=== PATIENT | male | born 1975 | race Caucasian/White ===

== ENCOUNTER 2016-10-27 19:25 | Emergency (ER) | payer SELFPAY ==
--- NOTE | 2016-10-27 21:18 | DIAGNOSTIC IMAGING REPORT ---
PROCEDURE: XR FOREARM - LEFT INDICATION: TRAUMA/INJURY TECHNIQUE: AP and lateral views. COMPARISON: None. FINDINGS: Overlying external densities obscures some of the detail (splint). There is a comminuted intra-articular fracture of the left distal radius with two thirds bone width of posterior displacement, moderate dorsal impaction and ventral apical angulation. There is a mildly displaced transverse fracture of the left ulnar styloid. The proximal radius and ulna are normal. IMPRESSION: 1. Comminuted, displaced, and angulated intra-articular fracture of the left distal radius. 2. Displaced fracture of the left ulnar styloid.
--- NOTE | 2016-10-28 00:14 | DIAGNOSTIC IMAGING REPORT ---
PROCEDURE: XR WRIST 1 OR 2 VIEWS - LEFT INDICATION: POST REDUCTION TECHNIQUE: AP and lateral views. COMPARISON: Compare radiographs of the left forearm earlier today. FINDINGS: Cast obscures some of the detail. Interval reduction of left distal radius fracture with mild residual impaction. Mildly displaced ulnar styloid fracture. IMPRESSION: 1. Interval reduction of left distal radius fracture (mild residual impaction). 2. No change in left ulnar styloid fracture.
--- NOTE | 2016-10-28 00:21 | ED CLINICAL REPORT ---
Clinical Report - Physicians/Mid Levels [facility] [address] [place] [address] 10/27/2016 19:25 Patient: RAVEN LOCKETT Time Seen: 22:40 Oct 27 2016. Arrived- By private vehicle. Historian- patient, family and spouse. HISTORY OF PRESENT ILLNESS Chief Complaint: Injury to the right hand and right wrist. The injury happened just prior to arrival. Occurred at home. The patient sustained a direct blow. Patient is experiencing mild pain. Patient denies injury to the head or neck. ( Patient fell from a counter onto a moving garbage, on an outstretched left hand. Patient is right-hand dominant. No prior injuries to the left hand. Was evaluated by medics, and came to the emergency department POV with family.). REVIEW OF SYSTEMS No swelling or tingling. All systems otherwise negative, except as recorded above. PAST HISTORY The patient's dominant hand is the right. He has not had a prior injury to the same area. Additional Surgeries: no known surgeries. Allergies: No Known Drug Allergy. ADDITIONAL NOTES The nursing notes have been reviewed. PHYSICAL EXAM Vital Signs: 10/27/2016 20:13 BP: 130/85. HR: 81. RR: 28. O2 saturation: 99%. Appearance: Alert. Head: Head atraumatic. ENT: Ears normal. CVS: Normal heart rate and rhythm. Heart sounds normal. Respiratory: No respiratory distress. Breath sounds normal. Skin: Skin warm. Skin intact. Extremities: Left distal radius: tenderness, swelling and moderate deformity consistent with a fracture of the distal radius. Limited thumb movement secondary to pain (diminished flexion). Limited ROM at the wrist secondary to pain (diminished flexion). Neurovascular intact distally. No ecchymosis or foreign body. No hand injury. Neuro, Vascular and Tendons: Vascular status intact. Motor intact. PROGRESS AND PROCEDURES Procedural Sedation: Time-out completed immediately before the procedure. Last po intake: (8 hours ago). ASA classification: 2 - patient with mild systemic disease (seizure history). History / physical exam. See physical exam recorded above. Mallampati Classification: Class 2 - tonsillar pillars and uvula hidden by the base of the tongue. Normal airway anatomy. Preparation: consent was obtained and the risks of the procedure, benefits and alternatives were explained to patient. IV established. O2 administered. Placed on pulse oximeter and monitor worker. Suction was made available. Medications: Propofol IV administered. Patient status during sedation: was attended constantly and was cooperative and tranquil with sluggish response to stimulation. Vitals were stable. Oxygen saturation levels were normal. The airway was maintained. The recovery was uneventful. Complications: None. Post-procedure: Recovery was uneventful. Returned to baseline. Sedation only performed by me; intra-service time 16-37 minutes. ( sedation only performed by - TEJAS). (Electronically signed by Artis Lee MD 10/27/2016 23:07) Time Seen: 22:40 Oct 27 2016. Arrived- By private vehicle. Historian- patient, family and spouse. HISTORY OF PRESENT ILLNESS Chief Complaint: Injury to the right hand and right wrist. The injury happened just prior to arrival. The patient sustained a direct blow. Occurred at home. Patient is experiencing mild pain. Patient denies injury to the head or neck. ( Patient fell from a counter onto a moving garbage, on an outstretched left hand. Patient is right-hand dominant. No prior injuries to the left hand. Was evaluated by medics, and came to the emergency department POV with family. There was no injury to his head. since incident he has had significant amount of pain, feeling like he is going topass out.). REVIEW OF SYSTEMS No swelling or tingling. All systems otherwise negative, except as recorded above. PAST HISTORY The patient's dominant hand is the right. He has not had a prior injury to the same area. SOCIAL HISTORY Current every day smoker. No alcohol use or drug use. ADDITIONAL NOTES The nursing notes have been reviewed. PHYSICAL EXAM Vital Signs: 10/27/2016 20:13 BP: 130/85. HR: 81. RR: 28. O2 saturation: 99%. Appearance: Alert. Head: Head atraumatic. ENT: Ears normal. CVS: Normal heart rate and rhythm. Heart sounds normal. Respiratory: No respiratory distress. Breath sounds normal. Skin: Skin warm. Skin intact. Extremities: Left distal ulna: mild tenderness. Limited ROM at the wrist secondary to pain (diminished flexion and extension). Neurovascular intact distally. Left distal radius: tenderness, swelling and moderate deformity consistent with a fracture of the distal radius. Limited thumb movement secondary to pain (diminished flexion). Limited ROM at the wrist secondary to pain (diminished flexion). Neurovascular intact distally. No ecchymosis or foreign body. (no laceration/ abrasion/ bony protrusion, good sensation of thumb). No hand injury. Neuro, Vascular and Tendons: Vascular status intact. Capillary refill not prolonged. Motor intact. No functional tendon deficit. PROGRESS AND PROCEDURES Course of Care: Case discussed with orthopedics, Dr. Alvarado, who will see the patient in the emergency department. He attempted a hematoma block on the patient, however pain was still present, and this with Dr. Lee, conscious sedation was completed, please see their notes for this procedure. Patient was then placed a long-arm cast, by Dr. Alvarado and [facility]. Patient is very stable now alert, ambulatory. No other complaints. Vital signs as above. Patient to follow up outpatient, will likely need surgery. 10/27/2016 23:55 BP: 148/95. HR: 85. RR: 18. O2 saturation: 100%. 10/27/2016 23:30 BP: 162/94. HR: 85. RR: 18. O2 saturation: 100%. 10/27/2016 23:25 BP: 154/99. HR: 81. RR: 17. O2 saturation: 100%. 10/27/2016 23:20 BP: 150/95. HR: 83. RR: 18. O2 saturation: 100%. Patient is stable. Patient/family counseled. Disposition: Discharged. Condition: good. CLINICAL IMPRESSION Closed displaced and angulated comminuted, intraarticular and Colle's fracture of the distal left radius Fall from height. INSTRUCTIONS Apply ice. Elevate affected areas above chest level. Limit use of your hand. (DO NOT REMOVE THE CAST Follow p in 6-7 days with ORTHO). Prescription Medications: Zofran (orally disintegrating tablets) 4 mg: take 1 orally every 6 hours for 5 days as needed for nausea. No refill. Substitution is permissible. Ibuprofen 800 mg tablets: take 1 tablet orally every 8 hours for 5 days, as needed for pain. Dispense twenty (20). No refill. Percocet 5 mg/325 mg: take 1 tablet orally every 4 hours as needed for pain. Dispense thirty (30). No refill. Substitution is permissible. Follow-up: Follow up with your doctor in three days. Understanding of the discharge instructions verbalized by patient. Follow-up with: [facility], , [address], , [place], [id number] Follow up in five days. Call for the next available appointment. (Electronically signed by Nayla Quezada P.A.-C 10/28/2016 1:03) Addenda viet RAVEN LOCKETT VisitID: [id number] Date: 10/27/2016 10/28/2016 1:04 EKG: vent rate 70 prt inerval 152 qrs duration [address] changes or elevation Normal sinus rhythm with sinus arrhythmia (Electronically signed by Nayla Quezada P.A.-C - 10/28/2016 1:04)
--- NOTE | 2016-10-28 00:21 | ED CLINICAL REPORT ---
Clinical Report - Physicians/Mid Levels [facility] [address] [place] [address] 10/27/2016 19:25 Patient: RAVEN LOCKETT Time Seen: 22:40 Oct 27 2016. Arrived- By private vehicle. Historian- patient, family and spouse. HISTORY OF PRESENT ILLNESS Chief Complaint: Injury to the right hand and right wrist. The injury happened just prior to arrival. Occurred at home. The patient sustained a direct blow. Patient is experiencing mild pain. Patient denies injury to the head or neck. ( Patient fell from a counter onto a moving garbage, on an outstretched left hand. Patient is right-hand dominant. No prior injuries to the left hand. Was evaluated by medics, and came to the emergency department POV with family.). REVIEW OF SYSTEMS No swelling or tingling. All systems otherwise negative, except as recorded above. PAST HISTORY The patient's dominant hand is the right. He has not had a prior injury to the same area. Additional Surgeries: no known surgeries. Allergies: No Known Drug Allergy. ADDITIONAL NOTES The nursing notes have been reviewed. PHYSICAL EXAM Vital Signs: 10/27/2016 20:13 BP: 130/85. HR: 81. RR: 28. O2 saturation: 99%. Appearance: Alert. Head: Head atraumatic. ENT: Ears normal. CVS: Normal heart rate and rhythm. Heart sounds normal. Respiratory: No respiratory distress. Breath sounds normal. Skin: Skin warm. Skin intact. Extremities: Left distal radius: tenderness, swelling and moderate deformity consistent with a fracture of the distal radius. Limited thumb movement secondary to pain (diminished flexion). Limited ROM at the wrist secondary to pain (diminished flexion). Neurovascular intact distally. No ecchymosis or foreign body. No hand injury. Neuro, Vascular and Tendons: Vascular status intact. Motor intact. PROGRESS AND PROCEDURES Procedural Sedation: Time-out completed immediately before the procedure. Last po intake: (8 hours ago). ASA classification: 2 - patient with mild systemic disease (seizure history). History / physical exam. See physical exam recorded above. Mallampati Classification: Class 2 - tonsillar pillars and uvula hidden by the base of the tongue. Normal airway anatomy. Preparation: consent was obtained and the risks of the procedure, benefits and alternatives were explained to patient. IV established. O2 administered. Placed on pulse oximeter and surveillance system monitor. Suction was made available. Medications: Propofol IV administered. Patient status during sedation: was attended constantly and was cooperative and tranquil with sluggish response to stimulation. Vitals were stable. Oxygen saturation levels were normal. The airway was maintained. The recovery was uneventful. Complications: None. Post-procedure: Recovery was uneventful. Returned to baseline. Sedation only performed by me; intra-service time 16-37 minutes. ( sedation only performed by - TEJAS). (Electronically signed by Artis Lee MD 10/27/2016 23:07) Time Seen: 22:40 Oct 27 2016. Arrived- By private vehicle. Historian- patient, family and spouse. HISTORY OF PRESENT ILLNESS Chief Complaint: Injury to the right hand and right wrist. The injury happened just prior to arrival. The patient sustained a direct blow. Occurred at home. Patient is experiencing mild pain. Patient denies injury to the head or neck. ( Patient fell from a counter onto a moving garbage, on an outstretched left hand. Patient is right-hand dominant. No prior injuries to the left hand. Was evaluated by medics, and came to the emergency department POV with family. There was no injury to his head. since incident he has had significant amount of pain, feeling like he is going topass out.). REVIEW OF SYSTEMS No swelling or tingling. All systems otherwise negative, except as recorded above. PAST HISTORY The patient's dominant hand is the right. He has not had a prior injury to the same area. SOCIAL HISTORY Current every day smoker. No alcohol use or drug use. ADDITIONAL NOTES The nursing notes have been reviewed. PHYSICAL EXAM Vital Signs: 10/27/2016 20:13 BP: 130/85. HR: 81. RR: 28. O2 saturation: 99%. Appearance: Alert. Head: Head atraumatic. ENT: Ears normal. CVS: Normal heart rate and rhythm. Heart sounds normal. Respiratory: No respiratory distress. Breath sounds normal. Skin: Skin warm. Skin intact. Extremities: Left distal ulna: mild tenderness. Limited ROM at the wrist secondary to pain (diminished flexion and extension). Neurovascular intact distally. Left distal radius: tenderness, swelling and moderate deformity consistent with a fracture of the distal radius. Limited thumb movement secondary to pain (diminished flexion). Limited ROM at the wrist secondary to pain (diminished flexion). Neurovascular intact distally. No ecchymosis or foreign body. (no laceration/ abrasion/ bony protrusion, good sensation of thumb). No hand injury. Neuro, Vascular and Tendons: Vascular status intact. Capillary refill not prolonged. Motor intact. No functional tendon deficit. PROGRESS AND PROCEDURES Course of Care: Case discussed with orthopedics, Dr. Alvarado, who will see the patient in the emergency department. He attempted a hematoma block on the patient, however pain was still present, and this with Dr. Lee, conscious sedation was completed, please see their notes for this procedure. Patient was then placed a long-arm cast, by Dr. Alvarado and [facility]. Patient is very stable now alert, ambulatory. No other complaints. Vital signs as above. Patient to follow up outpatient, will likely need surgery. 10/27/2016 23:55 BP: 148/95. HR: 85. RR: 18. O2 saturation: 100%. 10/27/2016 23:30 BP: 162/94. HR: 85. RR: 18. O2 saturation: 100%. 10/27/2016 23:25 BP: 154/99. HR: 81. RR: 17. O2 saturation: 100%. 10/27/2016 23:20 BP: 150/95. HR: 83. RR: 18. O2 saturation: 100%. Patient is stable. Patient/family counseled. Disposition: Discharged. Condition: good. CLINICAL IMPRESSION Closed displaced and angulated comminuted, intraarticular and Colle's fracture of the distal left radius Fall from height. INSTRUCTIONS Apply ice. Elevate affected areas above chest level. Limit use of your hand. (DO NOT REMOVE THE CAST Follow p in 6-7 days with ORTHO). Prescription Medications: Zofran (orally disintegrating tablets) 4 mg: take 1 orally every 6 hours for 5 days as needed for nausea. No refill. Substitution is permissible. Ibuprofen 800 mg tablets: take 1 tablet orally every 8 hours for 5 days, as needed for pain. Dispense twenty (20). No refill. Percocet 5 mg/325 mg: take 1 tablet orally every 4 hours as needed for pain. Dispense thirty (30). No refill. Substitution is permissible. Follow-up: Follow up with your doctor in three days. Understanding of the discharge instructions verbalized by patient. Follow-up with: [facility], , [address], , [place], [id number] Follow up in five days. Call for the next available appointment. (Electronically signed by Nayla Quezada P.A.-C 10/28/2016 1:03) Addenda viet RAVEN LOCKETT VisitID: [id number] Date: 10/27/2016 10/28/2016 1:04 EKG: vent rate 70 prt inerval 152 qrs duration [address] changes or elevation Normal sinus rhythm with sinus arrhythmia (Electronically signed by Nayla Quezada P.A.-C - 10/28/2016 1:04)
--- NOTE | 2016-10-28 00:22 | ED ORDER SUMMARY ---
..... Patient: RAVEN LOCKETT OrderSheet [facility] VisitID: [id number] [place] [address] 40y, M Registration Date/Time: 10/27/2016 ORDER SHEET Weight: 95.2 kg (stated) Allergies: No Known Drug Allergy GENERAL ORDERS: Forearm Right Urgent (20:25 10/27/2016 EKoroleva P.A.-C) (Cancelled: Other20:25 EKoroleva P.A.-C) Supervisor [employer]ing [employer] (Continuous) (20:25 10/27/2016 EKoroleva P.A.-C) (Ack 20:28 SRedmond) (20:40 DDavis R.N.) EKG - ER Stat (20:25 10/27/2016 EKoroleva P.A.-C) (Ack 20:28 SRedmond) (20:32 CHagerty ER Leather Seasoner) Forearm Left Urgent (20:26 10/27/2016 EKoroleva P.A.-C) (Ack 20:28 SRedmond) (20:55 MCampbell) Wrist 2V Left Urgent (22:49 10/27/2016 [facility] ER Leather Seasoner verbal order read back to EKoroleva P.A.-C) (Ack 23:02 SRedmond) (23:33 GUnger) MEDICATION ORDERS: Bupivacaine Injection 0.25 % (soln) (place at bedside, with syringes & needles) (21:21 10/27/2016 DDavis R.N. verbal order read back to EKoroleva P.A.-C) (Ack 21:22 DDavis R.N.) (21:23 DDavis R.N.) IV FLUIDS: Dilaudid IV 1 mg (HIGH ALERT MEDICATION, NOW) (20:25 10/27/2016 EKoroleva P.A.-C) (Ack 20:41 DDavis R.N.) (20:56 DDavis R.N.) IV Saline Lock (20:25 10/27/2016 EKoroleva P.A.-C) (20:40 DDavis R.N.) IV NS : initial bolus 1000 mL (1000 mL/hr), then 10 mL/hr for X1 (NOW); Jamie (21:15 10/27/2016 EKoroleva P.A.-C) (21:20 DDavis R.N.) Dilaudid IV 1 mg (HIGH ALERT MEDICATION, NOW) (21:40 10/27/2016 EKoroleva P.A.-C) (Ack 21:45 DDavis R.N.) (21:51 DDavis R.N.) Propofol IV 80mg (HIGH ALERT MEDICATION, NOW, TITRATE) (23:08 10/27/2016 RCollier R.N. verbal order read back to Moshe TARIQ) (23:09 RCollier R.N.) IV NS : initial bolus 500 mL (1000 mL/hr), then none - (NOW) (23:19 10/27/2016 RCollier R.N. verbal order read back to Moshe TARIQ) (23:20 RCollier R.N.) ORDER SHEET NOTES: [Electronically signed by Artis Lee MD (23:07 10/27/2016)] [Electronically signed by Nayla QuezadaASue-C (01:03 10/28/2016)] [Electronically signed by Kwan Burroughs R.N. (06:24 10/28/2016)] [Electronically locked/signed by Kwan Burroughs R.N. (06:24 10/28/2016)]
--- NOTE | 2016-10-28 00:22 | ED ORDER SUMMARY ---
..... Patient: RAVEN LOCKETT OrderSheet [facility] VisitID: [id number] [place] [address] 40y, M Registration Date/Time: 10/27/2016 ORDER SHEET Weight: 95.2 kg (stated) Allergies: No Known Drug Allergy GENERAL ORDERS: Forearm Right Urgent (20:25 10/27/2016 EKoroleva P.A.-C) (Cancelled: Other20:25 EKoroleva P.A.-C) Account Consultant (Continuous) (20:25 10/27/2016 EKoroleva P.A.-C) (Ack 20:28 SRedmond) (20:40 DDavis R.N.) EKG - ER Stat (20:25 10/27/2016 EKoroleva P.A.-C) (Ack 20:28 SRedmond) (20:32 CHagerty ER Staffing And Scheduling Coordinator) Forearm Left Urgent (20:26 10/27/2016 EKoroleva P.A.-C) (Ack 20:28 SRedmond) (20:55 MCampbell) Wrist 2V Left Urgent (22:49 10/27/2016 [facility] ER Staffing And Scheduling Coordinator verbal order read back to EKoroleva P.A.-C) (Ack 23:02 SRedmond) (23:33 GUnger) MEDICATION ORDERS: Bupivacaine Injection 0.25 % (soln) (place at bedside, with syringes & needles) (21:21 10/27/2016 DDavis R.N. verbal order read back to EKoroleva P.A.-C) (Ack 21:22 DDavis R.N.) (21:23 DDavis R.N.) IV FLUIDS: Dilaudid IV 1 mg (HIGH ALERT MEDICATION, NOW) (20:25 10/27/2016 EKoroleva P.A.-C) (Ack 20:41 DDavis R.N.) (20:56 DDavis R.N.) IV Saline Lock (20:25 10/27/2016 EKoroleva P.A.-C) (20:40 DDavis R.N.) IV NS : initial bolus 1000 mL (1000 mL/hr), then 10 mL/hr for X1 (NOW); Jamie (21:15 10/27/2016 EKoroleva P.A.-C) (21:20 DDavis R.N.) Dilaudid IV 1 mg (HIGH ALERT MEDICATION, NOW) (21:40 10/27/2016 EKoroleva P.A.-C) (Ack 21:45 DDavis R.N.) (21:51 DDavis R.N.) Propofol IV 80mg (HIGH ALERT MEDICATION, NOW, TITRATE) (23:08 10/27/2016 RCollier R.N. verbal order read back to Moshe TARIQ) (23:09 RCollier R.N.) IV NS : initial bolus 500 mL (1000 mL/hr), then none - (NOW) (23:19 10/27/2016 RCollier R.N. verbal order read back to Moshe TARIQ) (23:20 RCollier R.N.) ORDER SHEET NOTES: [Electronically signed by Artis Lee MD (23:07 10/27/2016)] [Electronically signed by Nayla QuezadaASue-C (01:03 10/28/2016)] [Electronically signed by Kwan Burroughs R.N. (06:24 10/28/2016)] [Electronically locked/signed by Kwan Burroughs R.N. (06:24 10/28/2016)]
--- NOTE | 2016-10-28 00:22 | ED NURSING NOTES ---
Clinical Report - Nurses [facility] [address] [place] [address] 10/27/2016 19:25 Patient: RAVEN LOCKETT [facility]#: [id number] TRIAGE Triage time 2009. Acuity: LEVEL 3. Chief Complaint: INJURY TO LEFT WRIST. --20:16 Jacqui Cano R.N. 20:13 10/27/16. BP: 130/85. HR: 81. RR: 28. O2 saturation: 99%. Pain level now 04/18. --20:16 Jacqui Cano R.N. Weight: 95.2 kg stated. Height/Length: 72 inches Per Patient. BMI: 28.5. --20:15 Jacqui Cano R.N. Allergies No Known Drug Allergy. --20:23 Jacqui Cano R.N. History Arrived by private vehicle. Historian: patient. Accompanied by family. Primary physician (damaris). This occurred just prior to arrival. Mechanism of injury: fell (fell 3-4 feet off of porch). PAST MEDICAL HX: Tetanus status: unknown. SURGERY HX: No history of previous surgery. SOCIAL HX: Heavy tobacco smoker (cigarette)- less than 1 pack per day. No alcohol use or drug use. --20:16 Jacqui Cano R.N. PROBLEMS: Seizure hx. --20:13 Jacqui Cano R.N. ADDITIONAL SURGERIES: no known surgeries. Interventions ID band on patient. To treatment room. --20:16 Jacqui Cano R.N. PHYSICAL ASSESSMENT GENERAL / NEURO / PSYCH: Oriented X 4. Alert. Appears in pain and anxious. ( Patient NSR on radiation monitor). EXTREMITIES: Capillary refill is less than 2 seconds in the extremities. Left forearm: (pain). SKIN: Skin is warm and dry. --20:40 Kwan Burroughs R.N. 20:39 10/27/16. BP: 169/105 taken while sitting. HR: 76. RR: 16. O2 saturation: 100% on room air. Pain level now: 04/18. --20:40 Kwan Burroughs R.N. GENERAL / NEURO / PSYCH: ( heart sounds and lung sounds WNL). --20:40 Kwan Burroughs R.N. GENERAL / NEURO / PSYCH: Morena Coma Scale: 15- eyes open spontaneously (4); best verbal response- oriented x 4 (5); best motor response- obeys commands (6). --00:50 Kwan Burroughs R.N. 22:45:. GENERAL / NEURO / PSYCH: Oriented X 4. Alert. ( GCS=15, Timeout performed at 2245.). --01:08 Kwan Burroughs R.N. NURSING PROGRESS NOTES 20:22 10/27/16. Care transferred and report given (Levi Rodriguez, EDRN). --20:23 Jacqui Cano R.N. EKG time: (2030). EKG was ordered, performed by a tech and shown to the ED physician. --20:33 Maurizio Baker, ER Health And Wellness Advisor 20:35 10/27/2016 Site #1 started via IV in the right antecubital space with an 20g angiocath; one attempt. Blood drawn: rainbow set. Labeled in the presence of the patient and sent to the lab. Saline lock flushed with 10 mL saline. --20:40 Kwan Burroughs R.N. 20:54 10/27/2016 Dilaudid (HYDROmorphone HCl PF) IVP 1 mg given over 2 minute(s) via site #1. Allergies verified, confirmed 5 rights and sedative warning given to the patient. IV patency established. IV site checked: no pain, redness, or swelling. IV flushed thoroughly pre- and post-medication administration. IVP given by RN. --20:56 Kwan Burroughs R.N. 21:20 10/27/2016 Started bag #1 1000 mL IV Fluids IV NS (Saline); at 1000 mL/hr over 1 hour(s) via site #1. Allergies verified and confirmed 5 rights. IV patency established. IV site checked: no pain, redness, or swelling. IV flushed thoroughly pre- and post-medication administration. Completed per protocol. --21:20 Kwan Burroughs R.N. ( Bupivocaine placed at bedside, per order.). --21:21 Kwan Burroughs R.N. 21:23 10/27/2016 Bupivacaine Injection Injectable 0.25 % given. (to bedside only). --21:23 Kawn Burroughs R.N. 21:49 10/27/2016 Dilaudid (HYDROmorphone HCl PF) IVP 1 mg given over 2 minute(s) via site #1. Allergies verified, confirmed 5 rights and sedative warning given to the patient. IV patency established. IV site checked: no pain, redness, or swelling. IV flushed thoroughly pre- and post-medication administration. IVP given by RN. --21:51 Kwan Burroughs R.N. ( Ortho doc in room). --21:56 Kwan Burroughs R.N. ( Ortho doctor in room with patient, performing procedure. Nurse Levi assisting.). --22:12 Kwan Burroughs R.N. ( Dr. Alvarado applied a cast to the patient's left arm after the closed reduction. Patient is awake and alert, oriented, and conversing with his spouse. He states that the pain is better.). --23:07 Kwan Burroughs R.N. 23:07 10/27/16. BP: 150/84. HR: 85. RR: 15 (unlabored). O2 saturation: 98% on room air. Pain level now: 4/10. --23:08 Kwan Burroughs R.N. 22:51 10/27/2016 PROPOFOL IVP 40 mg given over 2 minute(s) via site #1. Allergies verified and confirmed 5 rights. IV patency established. IV site checked: no pain, redness, or swelling. IV flushed thoroughly pre- and post-medication administration. IVP given by physician. --23:09 Jessica Gilmore R.N. 22:52 10/27/2016 PROPOFOL IVP 20 mg given over 1 minute(s) via site #1. Allergies verified and confirmed 5 rights. IV patency established. IV site checked: no pain, redness, or swelling. IV flushed thoroughly pre- and post-medication administration. IVP given by physician. --23:10 Jessica Gilmore R.N. ( Patient awaiting Xray). --23:10 Kwan Burroughs R.N. 22:50 10/27/2016 Started bag #1 1000 mL IV Fluids IV NS (Saline); bolus of 500 mL over 30 minute(s) via site #1. Allergies verified and confirmed 5 rights. IV patency established. IV site checked: no pain, redness, or swelling. IV flushed thoroughly pre- and post-medication administration. --23:20 Jessica Gilmore R.N. 22:53 10/27/2016 PROPOFOL IVP 20 mg given over 1 minute(s) via site #1. Allergies verified and confirmed 5 rights. IV patency established. IV site checked: no pain, redness, or swelling. IV flushed thoroughly pre- and post-medication administration. IVP given by physician. --23:10 Jessica Gilmore R.N. 23:20 10/27/2016 IV Fluids IV NS Discontinued: bag #1 STOPPED. Total amount infused: 500 mL. IV patency established. IV site checked: no pain, redness, or swelling. IV flushed thoroughly. --23:20 Jessica Gilmore R.N. ( Patient ambulates to bathroom with spouse). --00:11 Kwan Burroughs R.N. ( During the patient's conscious sedation, SOPHIE Lopez administered meds and monitored patient. SOPHIE Sims assisted the Orthopedic doctor with traction and physical manipulation.). --00:52 Kwan Burroughs R.N. 21:56 10/27/2016 IV Fluids IV NS Discontinued: bag #1 completed. Total amount infused: 1000 mL. IV patency established. IV site checked: no pain, redness, or swelling. IV flushed thoroughly. --01:07 Kwan Burroughs R.N. Procedural Sedation Flowsheet Baseline cardiac rhythm: normal sinus rhythm. Diagnosis: fracture, left forearm and wrist. Procedure: reduction of fracture, left forearm and wrist. Procedure performed by consulting orthopedist and assisted by two nurses and ED physician. Allergies: NKDA. Last oral intake by patient was liquid today (at 1530). Patient / family education: explanation of procedure, procedural sedation process, post procedure process, need for ride home and post procedure sedation instructions given to family. Preparation: ID band on patient and consent obtained per patient; order, History and Physical, and meds documented; airway equipment, suction equipment and emergency cart at bedside; pulse oximeter, radiation monitor, NIBP and ETCO2 monitor placed on patient. Patient placed in supine position. Oxygen applied to patient via nasal cannula at 2 liter/min. He was assessed immediately prior to procedure. Time-out completed immediately before the procedure per protocol: verified identity of patient (name, birthdate, visit number and medical record number), procedure, side and site of procedure, position of patient, agreement on the procedure to be done, availability of diagnostic and imaging studies and consent was obtained; verification done by care team (nurse). Procedure start time: 2244 Procedure end time: 2300 Patient tolerated procedure well. --23:19 Jessica Gilmore R.N. 22:45 10/27/16. BP: 174/104. HR: 88. RR: 15. O2 saturation: 96% on nasal cannula at 2 liters/minute. Carpenter-Solis pain scale: 6/10. --23:19 Jessica Gilmore R.N. DISPOSITION / DISCHARGE 01:03 10/28/16. BP: 154/97. HR: 81. RR: 18. O2 saturation: 97% on room air. Pain level now: 10/17. --01:04 Kwan Bruroughs R.N. Departure time: 01:04. Condition at departure: improved and stable. No learning barriers present. Discharge instructions provided and reviewed with the patient. Reviewed warnings. Reviewed medication(s) side effects, precautions, dosing and course information. Prescription(s) given to the patient. Treatments reviewed. Reviewed referrals for followup. Patient and spouse verbalized understanding. Written instructions provided in Andorran. The patient was discharged home and accompanied by spouse and family. He left the Emergency Department ambulatory and via private vehicle. Spouse driving. --01:04 Kwan Burroughs R.N. <<STRICKEN ENTRY-- 01:10/28/2016 Site #1 removed upon discharge. --01:05 Kwan Burroughs R.N. --END STRIKE>> Correction. --01: Kwan Burroughs R.N. 01:10/28/2016 Site #1 removed upon discharge. Manual pressure and bandage applied. --01:05 Kwan Burroughs R.N. Locked/Released at 10/28/2016 6:24 by Kwan Burroughs R.N.
--- NOTE | 2016-10-28 00:40 | CONSULTATION REPORT ---
DATE OF CONSULTATION: 10/27/2016 CHIEF COMPLAINT: 1. Pain and deformity in the left wrist HISTORY OF PRESENT ILLNESS: Thank you very much for requesting an emergency department consultation on this 40-year-old right-handed man who was working at home on his porch about 3 feet off the level grade of the land below, when he fell on concrete and suffered marked pain and deformity of the left wrist. He was brought into our emergency department where x-rays showed a comminuted intra-articular fracture. At the time I saw him , he had numbness and abnormal sensation in the median nerve distribution, especially in the thumb and pointer finger and a little less so on the long finger. MEDICAL/SURGICAL HISTORY: Past medical history: His medical problems are a seizure disorder, controlled by phenobarbital, and hypertension, controlled by medication; he does not know the name. ALLERGIES: 1. HE HAS NO ALLERGIES. PHYSICAL EXAMINATION: GENERAL: Shows a 210 pound man, alert, oriented and in a great deal of pain. He is writhing while lying on the stretcher. VITAL SIGNS: When he was seen was blood pressure of 182/108. His pulse was 90 and regular. EXTREMITIES: Examination of the wrist showed a partial-thickness abrasion over the lateral aspect of the ulna without a laceration and that had already dried by the time I saw him. There were no other wounds on the arm. He had the silver-fork deformity of a Colles fracture. As mentioned in the history, he had numbness on light touch over the thumb, pointer finger and long finger. LAB/IMAGING: Review of the x-rays showed a largely displaced comminuted intra-articular fracture of the distal radius. IMPRESSION: 1. As per x-rays. PLAN: I told him I would perform a reduction, but there was a quite good chance that it would not be the final treatment, which may require surgery on the wrist. I explained a closed reduction. The patient was discharged with oxycodone for pain 7.5/325. I asked that they get an appointment at the orthopedic clinic for followup. PROCEDURE: With sterile technique, I gave the patient a hematoma block with 10 mL of 0.25% bupivacaine into the fracture hematoma of the radius and I injected the ulna styloid with 3 mL. The injections were done with a 25-gauge needle. I waited 15 minutes and the patient had much less pain on pressure over the distal radius fracture, but he could not allow me to hold his pointer finger or thumb and pull on them, so that the reduction would not be possible without supplemental anesthetic. Dr. Benson, the emergency department physician, agreed to provide sedation for the patient and his note will show that. The anesthetic and the closed reduction risks and benefits were explained to the patient and I once again emphasized the shortcomings of closed reduction alone, explaining that he would need regular x-rays taken at about a weekly interval to see if the fracture was coming out of position, in which case secondary surgery may be necessary. Sedation was administered and a closed reduction was performed with an res habilitation assistant pulling opposite for traction and then the manipulation into the final position. A cast was placed and molded at 3 points to maintain the reduction. After the post- reduction x-rays were performed the cast was continued up into a long-arm cast. The patient tolerated the sedation well and awakened in good condition.
--- NOTE | 2016-10-28 06:24 | ED DISCHARGE INSTRUCTIONS ---
Patient: RAVEN LOCKETT General Instructions [facility] VisitID: [id number] [address] [place] [address] 40y, M Registration Date/Time: 10/27/2016 (Electronically signed by Artis Lee MD 10/27/2016 23:07) Closed displaced and angulated comminuted, intraarticular and Colle's fracture of the distal left radius Fall from height. INSTRUCTIONS Apply ice. Elevate affected areas above chest level. Limit use of your hand. (DO NOT REMOVE THE CAST Follow p in 6-7 days with ORTHO). Prescription Medications: Zofran (orally disintegrating tablets) 4 mg: take 1 orally every 6 hours for 5 days as needed for nausea. No refill. Substitution is permissible. Ibuprofen 800 mg tablets: take 1 tablet orally every 8 hours for 5 days, as needed for pain. Dispense twenty (20). No refill. Percocet 5 mg/325 mg: take 1 tablet orally every 4 hours as needed for pain. Dispense thirty (30). No refill. Substitution is permissible. Follow-up: Follow up with your doctor in three days. Understanding of the discharge instructions verbalized by patient. [facility] with: [facility], , [address], [place], [id number] Follow up in five days. Call for the next available appointment. ADDITIONAL INFORMATION Fracture:Wrist (Colles) [Reduction Needed] You have a break (fracture) of the forearm bone (radius) where it attaches to the wrist. This is sometimes called a COLLES FRACTURE. The bone is out of place and must be "set" (reduced) to make it straight again. Once the bone is straightened a splint or cast will be applied. The splint or cast must remain in place until the bone heals (usually 4-6 weeks). Home Care: 1) Keep your arm elevated to reduce pain and swelling. When sitting or lying down elevate your arm above the level of your heart. You can do this by placing your arm on a pillow that rests on your chest or on a pillow at your side. This is most important during the first 48 hours after injury. 2) Apply an ice pack (ice cubes in a plastic bag, wrapped in a towel) over the injured area for 20 minutes every 1-2 hours the first day. You can place the ice pack inside the sling and directly over the splint/cast. Continue with ice packs 3-4 times a day for the next two days, then as needed for the relief of pain and swelling. 3) Keep the cast/splint completely dry at all times. Bathe with your cast/splint out of the water, protected with a large plastic bag, rubber-banded at the top end. If a fiberglass cast/splint gets wet, you can dry it with a hair-dryer. 4) You may use acetaminophen (Tylenol) or ibuprofen (Motrin, Advil) to control pain, unless another pain medicine was prescribed. [ NOTE : If you have chronic liver or kidney disease or ever had a stomach ulcer or GI bleeding, talk with your doctor before using these medicines.] Follow Up with your doctor in one week, or as advised by our staff, to be sure the bone is healing properly. If a splint was applied, it will be changed to a cast during your follow-up visit. There is a chance that the fracture will move out of place after it is set before the ends begin to seal together. Therefore, it is important that you follow-up as directed for a repeat X-ray within the next seven days. [NOTE: A radiologist will review any X-rays that were taken. We will notify you of any new findings that may affect your care.] Get Prompt Medical Attention if any of the following occur: -- The plaster cast or splint becomes wet or soft -- The fiberglass cast or splint remains wet for more than 24 hours -- Increased tightness or pain under the cast or splint -- Fingers become swollen, cold, blue, numb or tingly Ondansetron Hydrochloride Oral tablet What is this medicine? ONDANSETRON (on GT se tessy) is used to treat nausea and vomiting caused by chemotherapy. It is also used to prevent or treat nausea and vomiting after surgery. How should I use this medicine? Take this medicine by mouth with a glass of water. Follow the directions on your prescription label. Take your doses at regular intervals. Do not take your medicine more often than directed. Talk to your agribusiness internship regarding the use of this medicine in children. Special care may be needed. What side effects may I notice from receiving this medicine? Side effects that you should report to your doctor or health care team coordinator scheduler as soon as possible: allergic reactions like skin rash, itching or hives, swelling of the face, lips or tongue breathing problems dizziness fast or irregular heartbeat feeling faint or lightheaded, falls fever and chills swelling of the hands or feet tightness in the chest Side effects that usually do not require medical attention (report to your doctor or health care team coordinator scheduler if they continue or are bothersome): constipation or diarrhea headache What may interact with this medicine? Do not take this medicine with any of the following medications: -apomorphine -cisapride -dofetilide -dronedarone -pimozide -thioridazine -ziprasidone This medicine may also interact with the following medications: -carbamazepine -phenytoin -rifampicin -tramadol -other medicines that prolong the QT interval (cause an abnormal heart rhythm) What if I miss a dose? If you miss a dose, take it as soon as you can. If it is almost time for your next dose, take only that dose. Do not take double or extra doses. Where should I keep my medicine? Keep out of the reach of children. Store between 2 and 30 degrees C (36 and 86 degrees F). Throw away any unused medicine after the expiration date. What should I tell my health care provider before I take this medicine? They need to know if you have any of these conditions: heart disease history of irregular heartbeat liver disease low levels of magnesium or potassium in the blood an unusual or allergic reaction to ondansetron, granisetron, other medicines, foods, dyes, or preservatives or trying to get breast-feeding What should I watch for while using this medicine? Check with your doctor or health care team coordinator scheduler right away if you have any sign of an allergic reaction. Ibuprofen Oral tablet What is this medicine? IBUPROFEN (eye BYOO proe fen) is a non-steroidal anti-inflammatory drug (NSAID). It is used for dental pain, fever, headaches or migraines, osteoarthritis, rheumatoid arthritis, or painful monthly periods. It can also relieve minor aches and pains caused by a cold, flu, or sore throat. How should I use this medicine? Take this medicine by mouth with a glass of water. Follow the directions on the prescription label. Take this medicine with food if your stomach gets upset. Try to not lie down for at least 10 minutes after you take the medicine. Take your medicine at regular intervals. Do not take your medicine more often than directed. A special MedGuide will be given to you by the pharmacist with each prescription and refill. Be sure to read this information carefully each time. Talk to your agribusiness internship regarding the use of this medicine in children. Special care may be needed. What side effects may I notice from receiving this medicine? Side effects that you should report to your doctor or health care team coordinator scheduler as soon as possible: allergic reactions like skin rash, itching or hives, swelling of the face, lips, or tongue black or bloody stools, blood in the urine or in vomit breathing problems changes in vision chest pain general ill feeling or flu-like symptoms nausea or vomiting redness, blistering, peeling or loosening of the skin, including inside the mouth slurred speech or weakness on one side of the body stomach pain unexplained weight gain or swelling unusually weak or tired yellowing of eyes or skin Side effects that usually do not require medical attention (report to your doctor or health care team coordinator scheduler if they continue or are bothersome): constipation or diarrhea dizziness gas or heartburn stomach upset What may interact with this medicine? Do not take this medicine with any of the following medications: cidofovir ketorolac methotrexate pemetrexed This medicine may also interact with the following medications: alcohol aspirin diuretics lithium other drugs for inflammation like prednisone warfarin What if I miss a dose? If you miss a dose, take it as soon as you can. If it is almost time for your next dose, take only that dose. Do not take double or extra doses. Where should I keep my medicine? Keep out of the reach of children. Store at room temperature between 15 and 30 degrees C (59 and 86 degrees F). Keep container tightly closed. Throw away any unused medicine after the expiration date. What should I tell my health care provider before I take this medicine? They need to know if you have any of these conditions: asthma cigarette smoker drink more than 3 alcohol containing drinks a day heart disease or circulation problems such as heart failure or leg edema (fluid retention) high blood pressure kidney disease liver disease stomach bleeding or ulcers an unusual or allergic reaction to ibuprofen, aspirin, other NSAIDS, other medicines, foods, dyes, or preservatives or trying to get breast-feeding What should I watch for while using this medicine? Tell your doctor or healthcare professional if your symptoms do not start to get better or if they get worse. This medicine does not prevent heart attack or stroke. In fact, this medicine may increase the chance of a heart attack or stroke. The chance may increase with longer use of this medicine and in people who have heart disease. If you take aspirin to prevent heart attack or stroke, talk with your doctor or health care team coordinator scheduler. Do not take other medicines that contain aspirin, ibuprofen, or naproxen with this medicine. Side effects such as stomach upset, nausea, or ulcers may be more likely to occur. Many medicines available without a prescription should not be taken with this medicine. This medicine can cause ulcers and bleeding in the stomach and intestines at any time during treatment. Ulcers and bleeding can happen without warning symptoms and can cause . To reduce your risk, do not smoke cigarettes or drink alcohol while you are taking this medicine. You may get drowsy or dizzy. Do not drive, use machinery, or do anything that needs mental alertness until you know how this medicine affects you. Do not stand or sit up quickly, especially if you are an older patient. This reduces the risk of dizzy or fainting spells. This medicine can cause you to bleed more easily. Try to avoid damage to your teeth and gums when you brush or floss your teeth. Oxycodone Hydrochloride, Acetaminophen Oral tablet What is this medicine? ACETAMINOPHEN; OXYCODONE (a set a ELIAZAR michele fen; ox i KOE done) is a pain reliever. It is used to treat mild to moderate pain. How should I use this medicine? Take this medicine by mouth with a full glass of water. Follow the directions on the prescription label. Take your medicine at regular intervals. Do not take your medicine more often than directed. Talk to your agribusiness internship regarding the use of this medicine in children. Special care may be needed. Patients over 65 years old may have a stronger reaction and need a smaller dose. What side effects may I notice from receiving this medicine? Side effects that you should report to your doctor or health care team coordinator scheduler as soon as possible: allergic reactions like skin rash, itching or hives, swelling of the face, lips, or tongue breathing difficulties, wheezing confusion light headedness or fainting spells severe stomach pain yellowing of the skin or the whites of the eyes Side effects that usually do not require medical attention (report to your doctor or health care team coordinator scheduler if they continue or are bothersome): dizziness drowsiness nausea vomiting What may interact with this medicine? alcohol antihistamines barbiturates like amobarbital, butalbital, butabarbital, methohexital, pentobarbital, phenobarbital, thiopental, and secobarbital benztropine drugs for bladder problems like solifenacin, trospium, oxybutynin, tolterodine, hyoscyamine, and methscopolamine drugs for breathing problems like ipratropium and tiotropium drugs for certain stomach or intestine problems like propantheline, homatropine methylbromide, glycopyrrolate, atropine, belladonna, and dicyclomine general anesthetics like etomidate, ketamine, nitrous oxide, propofol, desflurane, enflurane, halothane, isoflurane, and sevoflurane medicines for depression, anxiety, or psychotic disturbances medicines for sleep muscle relaxants naltrexone narcotic medicines (opiates) for pain phenothiazines like perphenazine, thioridazine, chlorpromazine, mesoridazine, fluphenazine, prochlorperazine, promazine, and trifluoperazine scopolamine tramadol trihexyphenidyl What if I miss a dose? If you miss a dose, take it as soon as you can. If it is almost time for your next dose, take only that dose. Do not take double or extra doses. Where should I keep my medicine? Keep out of the reach of children. This medicine can be abused. Keep your medicine in a safe place to protect it from theft. Do not share this medicine with anyone. Selling or giving away this medicine is dangerous and against the law. Store at room temperature between 20 and 25 degrees C (68 and 77 degrees F). Keep container tightly closed. Protect from light. This medicine may cause accidental overdose and if it is taken by other adults, children, or pets. Flush any unused medicine down the toilet to reduce the chance of harm. Do not use the medicine after the expiration date. What should I tell my health care provider before I take this medicine? They need to know if you have any of these conditions: brain tumor Crohn's disease, inflammatory bowel disease, or ulcerative colitis drink more than 3 alcohol containing drinks per day drug abuse or addiction head injury heart or circulation problems kidney disease or problems going to the bathroom liver disease lung disease, asthma, or breathing problems an unusual or allergic reaction to acetaminophen, oxycodone, other opioid analgesics, other medicines, foods, dyes, or preservatives or trying to get breast-feeding What should I watch for while using this medicine? Tell your doctor or health care team coordinator scheduler if your pain does not go away, if it gets worse, or if you have new or a different type of pain. You may develop tolerance to the medicine. Tolerance means that you will need a higher dose of the medication for pain relief. Tolerance is normal and is expected if you take this medicine for a long time. Do not suddenly stop taking your medicine because you may develop a severe reaction. Your body becomes used to the medicine. This does NOT mean you are addicted. Addiction is a behavior related to getting and using a drug for a non-medical reason. If you have pain, you have a medical reason to take pain medicine. Your doctor will tell you how much medicine to take. If your doctor wants you to stop the medicine, the dose will be slowly lowered over time to avoid any side effects. You may get drowsy or dizzy. Do not drive, use machinery, or do anything that needs mental alertness until you know how this medicine affects you. Do not stand or sit up quickly, especially if you are an older patient. This reduces the risk of dizzy or fainting spells. Alcohol may interfere with the effect of this medicine. Avoid alcoholic drinks. There are different types of narcotic medicines (opiates) for pain. If you take more than one type at the same time, you may have more side effects. Give your health care provider a list of all medicines you use. Your doctor will tell you how much medicine to take. Do not take more medicine than directed. Call emergency for help if you have problems breathing. The medicine will cause constipation. Try to have a bowel movement at least every 2 to 3 days. If you do not have a bowel movement for 3 days, call your doctor or health care team coordinator scheduler. Do not take Tylenol (acetaminophen) or medicines that have acetaminophen with this medicine. Too much acetaminophen can be very dangerous. Many nonprescription medicines contain acetaminophen. Always read the labels carefully to avoid taking more acetaminophen. You have been given the following additional information: Colles Fracture, Reduction Required Ondansetron Hydrochloride Oral tablet Ibuprofen Oral tablet Oxycodone Hydrochloride, Acetaminophen Oral tablet Limit use of your hand. (Electronically signed by Nayla Quezada P.A.-C 10/28/2016 1:03)
== END 2016-10-28 00:56 | disposition home or self-care (01) ==
LOC: ED SRH 19:25
DX: S52.532A Colles' fracture of left radius, initial encounter for closed fracture (principal); W17.89XA Other fall from one level to another, initial encounter; Y93.9 Activity, unspecified; Y99.9 Unspecified external cause status; Y92.9 Unspecified place or not applicable

== ENCOUNTER 2016-11-15 10:59 | Outpatient (CLI) | payer SELFPAY ==
--- NOTE | 2016-11-15 11:43 | DIAGNOSTIC IMAGING REPORT ---
PROCEDURE: CT UPPER EXT W/O CONT - LEFT INDICATION: FX LEFT RADIUS TECHNIQUE: Axial thin-slice CT images were obtained through the left wrist . Coronal and sagittal reformations were created. COMPARISON: Left wrist films 10/27/2016 FINDINGS: Soft tissues: Normal Bones: reduction of left distal radius fracture with mild residual impaction. Mildly displaced ulnar styloid fracture. No evidence of callous or new bone formation. IMPRESSION: 1. reduction of left distal radius fracture with mild residual impaction. Mildly displaced ulnar styloid fracture. No evidence of callous or new bone formation.
== END 2016-11-15 23:00 ==
LOC: CT SRH 10:59
DX: S52.502S Unspecified fracture of the lower end of left radius, sequela (principal); Z98.890 Other specified postprocedural states